=== PATIENT | female | born 1950 | race Caucasian/White ===

== ENCOUNTER 2020-06-29 06:39 | Inpatient (IN) ==
--- NOTE | 2020-05-27 13:51 | PAT Medication Instructions ---
Medication Instructions Date of Service May 27, 2020 Home Medications albuterol sulfate 2 puff INHALATION Q6H PRN atorvastatin 20 mg PO HS calcium carbonate-vitamin D3 [Calcium 600 + D(3)] 1 cap PO BID cholecalciferol (vitamin D3) [Vitamin D3] 50 mcg PO QAM clopidogrel 75 mg PO QAM lansoprazole 30 mg PO QAM lisinopril 10 mg PO BID ASK your prescriber and surgeon clopidogrel 75 mg PO QAM (will need to be off medication x 7 days prior to surgery in order to get spinal anesthesia) DO NOT take the morning of surgery calcium carbonate-vitamin D3 [Calcium 600 + D(3)] 1 cap PO BID cholecalciferol (vitamin D3) [Vitamin D3] 50 mcg PO QAM lisinopril 10 mg PO BID Take morning of surgery With a small sip of water, OTHERWISE NOTHING TO EAT OR DRINK AFTER MIDNIGHT: albuterol sulfate 2 puff INHALATION Q6H PRN (use if needed; please bring with you to hospital day of surgery if possible) lansoprazole 30 mg PO QAM Take evening before surgery albuterol sulfate 2 puff INHALATION Q6H PRN (if needed) atorvastatin 20 mg PO HS calcium carbonate-vitamin D3 [Calcium 600 + D(3)] 1 cap PO BID lisinopril 10 mg PO BID Other Notes If you have any questions please call us at [phone] or [phone] or [phone] or [phone]
--- NOTE | 2020-05-31 09:44 | History & Physical Report ---
Date of Service May 31, 2020 date of surgery: 06/29/20 procedure: Left Total Knee Arthroplasty Assessment & Plan (1) Arthritis of knee, left: Risks and benefits of procedure discussed in detail today, patient would like to proceed with a Left total knee replacement at [facility] as scheduled. will obtain medical clearance from Dr Hernandez prior to surgery as well as obtain PATs at [facility]. Will resume her Plavix post op, f/u 2 weeks post op for routine post-operative care and x-ray, sooner if having any problems. will make arrangements for HHPT at the time of discharge. At this point in time, has failed conservative measures and would like to proceed with surgical intervention. The risks and benefits have been discussed including, but not limited to, risk of infection, nerve injury, stiffness, loss of motion, failure to improve, etc. Reasonable outcomes and options of treatment were discussed. An explanation of appropriate alternatives to the procedure that may be advantageous were discussed and their risks and benefits, as well as the risks and benefits of not proceeding with treatment. I offered to answer any additional inquiries concerning the treatment involved. All the patient's questions were answered. The patient is agreeable, understanding of the treatment plan and alternatives, and wishes to proceed with the treatment plan. History of Present Illness Chief Complaint: left knee pain Primary Care Provider: Jessica Hernandez Gini is a 70 year old female who complains of left knee pain, presents for pre-op evaluation prior to a left total knee replacement by dr Silva at [facility]. she complains of pain, crepitus, decreased range of motion and stiffness in the left knee. she states that the symptoms have been chronic and non-traumatic and she describes them as moderate-severe and dull and aching. The symptoms are aggravated by ascending stairs, daily activities, first steps while awake walking. Prior NSAIDs include ASA and Motrin, however had shortness of breath. she has been treated with previous visco and cortisone injections in the past without much relief. she had a prior knee scope in 1977. Allergies Allergy/AdvReac Type Severity Reaction Status Date / Time aspirin Allergy Unknown SOB, Verified 05/27/20 08:57 "ASTHMA ATTACK"-WITH MOTRIN, ASA PRODUCTS Home Medications Home Medications Medication Instructions Recorded Confirmed Type albuterol sulfate 2 puff INHALATION Q6H PRN 05/27/20 05/27/20 History atorvastatin 20 mg PO HS 05/27/20 05/27/20 History calcium carbonate-vitamin D3 1 cap PO BID 05/27/20 05/27/20 History [Calcium 600 + D(3)] cholecalciferol (vitamin D3) 50 mcg PO QAM 05/27/20 05/27/20 History [Vitamin D3] clopidogrel 75 mg PO QAM 05/27/20 05/27/20 History lansoprazole 30 mg PO QAM 05/27/20 05/27/20 History lisinopril 10 mg PO BID 05/27/20 05/27/20 History Past Med/Surg History Medical History Asthma NO USE OF INHALERS FOR PAST YRS GERD (gastroesophageal reflux disease) Hiatal hernia Hyperlipidemia Hypertension Lower back pain MVP (mitral valve prolapse) NO PREMED WITH DENTAL Osteopenia Stroke 2014 LEFT PONTINE STROKE-PLACED ON PLAVIX-F/U PCP-NO RESIDUAL EFFECTS Surgical History History of colonoscopy History of esophagogastroduodenoscopy (EGD) History of knee surgery X 1 LEFT History of knee surgery X 5 RIGHT -SCOPES AND LIGAMENT REPAIR, MENISCUS REPAIR History of nasal surgery POLYPECTOMY X 6 History of tonsillectomy Family History Father Family history of diabetes mellitus Mother Family history of diabetes mellitus Social History Smoking Status: Never smoker Second Hand Exposure: Yes (FATHER SMOKED); Do You Dip or Chew Tobacco: No; Hx Alcohol Use: Yes Alcohol type: wine Hx Substance Use: No Preferred Language: Mongolian Communication Ability: Effective Plastic Outfitter Required: No Beliefs That Will Affect Care: None Current Living Situation: Alone Other Information That Helps Us Care for You: No Feels Safe at Home: Yes Safety Concerns: Feels Safe At This Time Assistive Devices: Glasses Review of Systems Review of Systems: All systems reviewed & are unremarkable except as noted in HPI & below Constitutional: no fever, no chills and no sweats Respiratory: no cough and no dyspnea Cardiovascular: no chest pain, no dyspnea and no orthopnea Gastrointestinal: no abdominal pain, no nausea and no vomiting Musculoskeletal: as per Subjective / HPI Physical Exam Physical Exam: HT: 5ft 3in WT: 58.97kg BP: 118/84 Pulse: 69 Constitutional: WD/WN, vitals as above no acute distress Respiratory: normal respiratory effort, lungs clear to auscultation no respiratory distress, no labored breathing and does not use accessory muscles Cardiovascular: RRR, no murmur, no edema Gastrointestinal (Abdomen): normal bowel sounds, soft, nontender, no hepatosplenomegaly Musculoskeletal: Knee: + effusion (+1 effusion), + surgical incision (well healed portals), + limited ROM of knee (ROM 0/3/110), + knee ROM with crepitation, + joint line tenderness (medial joint line) and + Jaclyn's sign positive; no deformity, no skin erythema, no ecchymosis, no valgus laxity, no varus laxity, anterior drawer test negative, Es's sign negative and pivot shift test negative Results & Data Results & Data ([facility]) Diagnostic Findings Left Knee X-ray 05/23/20 confirms advanced degenerative changes to the left knee, greatest medial compartments and patellofemoral joint, showing joint space narrowing, osteophyte formation and subchondral sclerosis. no acute bony pathology noted, overall varus alignment.
--- NOTE | 2020-05-31 11:06 | Anesthesiology Consultation ---
Date of Service May 31, 2020 Assessment & Plan (1) Encounter for pre-operative examination: Chart Review Chart Review: Pending: Refer to Additional Notes / Consult section (pending possible ECHO/stress test, surgeon ordered PCP and cardio clearance and preop Covid testing ) and Patient seen in Pre Admission Testing Awaiting 2014 ECHO and stress test (faxed for at [facility] appt) Awaiting surgeon ordered PCP (06/10) and cardio (06/09) clearances Pt states she has spondylosis in L4-5 with old fractures - follows with Vance Huang - chiropractor - in [place]. Will attempt to get records. Per [facility] appt 05/31/20, pt resides in [facility]. Wears mask, uses good hand hygiene and socially distances. Travels to [facility] for medical appts. No known Covid positive contacts or Covid related symptoms. Educated patient to follow up with surgeon's office regarding Covid testing. Educated on importance of self quarantining, social distancing and wearing mask in public both for the patient and household contacts. Teaching & Discussion Pre-Anesthesia Teaching/Discussion Notes: Instructed NPO after midnight before surgery,except medications with 15 cc of water. Medication instructions provided according to the [facility] guidelines. History Surgery Operation Date: 06/29/20 12:30 Proposed Procedures p Left Total Knee Arthroplasty - Daryl Silva DO Height/Weight Height: 5 ft 3 in Weight: 60.7 kg Allergies Allergy/AdvReac Type Severity Reaction Status Date / Time aspirin Allergy Unknown SOB, Verified 05/27/20 08:57 "ASTHMA ATTACK"-WITH MOTRIN, ASA PRODUCTS Medications Home Medications Medication Instructions Recorded Confirmed Last Taken albuterol sulfate 2 puff INHALATION Q6H PRN 05/27/20 05/27/20 Unknown atorvastatin 20 mg PO HS 05/27/20 05/27/20 Unknown calcium carbonate-vitamin D3 1 cap PO BID 05/27/20 05/27/20 Unknown [Calcium 600 + D(3)] cholecalciferol (vitamin D3) 50 mcg PO QAM 05/27/20 05/27/20 Unknown [Vitamin D3] clopidogrel 75 mg PO QAM 05/27/20 05/27/20 Unknown lansoprazole 30 mg PO QAM 05/27/20 05/27/20 Unknown lisinopril 10 mg PO BID 05/27/20 05/27/20 Unknown Past Medical History Medical History Asthma NO USE OF INHALERS FOR PAST YRS GERD (gastroesophageal reflux disease) Well controlled and stable Hiatal hernia Hyperlipidemia Hypertension Lower back pain Chronic MVP (mitral valve prolapse) NO PREMED WITH DENTAL Osteopenia Stroke 2014 LEFT PONTINE STROKE-PLACED ON PLAVIX-F/U PCP-NO RESIDUAL EFFECTS Exercise / Class Metabolic Activity II 4-5 Yardwork/Stairs/Walk up hill (ONE FLIGHT OF STAIRS - NO CHEST PAIN OR SOB ) Past Family History Family History Father Family history of diabetes mellitus Mother Family history of diabetes mellitus Past Surgical History Surgical History History of colonoscopy History of esophagogastroduodenoscopy (EGD) History of knee surgery X 1 LEFT History of knee surgery X 5 RIGHT -SCOPES AND LIGAMENT REPAIR, MENISCUS REPAIR History of nasal surgery POLYPECTOMY X 6 History of tonsillectomy Past Anesthesia History No Hx of Anesthesia Complications and No Family Hx of Anesthesia Complications History of PONV No Hx of Motion Sickness and History of PONV (one episode - after knee surgery ) Social History Smoking Status: Never smoker Do You Dip or Chew Tobacco: No Hx Alcohol Use: Yes Alcohol type: wine alcohol intake frequency: a few times a week Hx Substance Use: No Review of Systems Patient denies chest pain, shortness of breath, dyspnea on exertion, cough, wheezing, palpitations. No hx of seizures, NH, apnea/snoring. No hx of blood clots or blood transfusions Physical Exam Vital Signs VITALS BP 145/61 P 62 TEMP 98.0 SP02 99% RESP 16 Constitutional no acute distress ENMT Mouth: no TMJ clicking Thyromental Distance: > or= 3.5 Finger Breadths (3.5) Mallampati Class: II Denies loose or missing teeth Caps on molars Neck neck extension not limited Respiratory normal respiratory effort; no respiratory distress Auscultation: lungs clear to auscultation bilaterally; no wheezes Cardiovascular Rate/Rhythm: regular rate and regular rhythm Heart Sounds: no murmur Vessels: no carotid bruit Musculoskeletal Spine: no pain with cervical ROM Neurologic moves all extremities Psychiatric Orientation: alert Testing Laboratory Results 05/31/20 11:40 05/31/20 11:40 PT 10.3 Seconds (9.0-12.0) 05/31/20 11:40 INR 1.0 (0.9-1.1) 05/31/20 11:40 APTT 32.0 Seconds (21.0-31.0) H 05/31/20 11:40 Hemoglobin A1c 5.6 % (4.5-5.6) 05/31/20 11:40 Urine Color Yellow 05/31/20 11:40 Urine Appearance Clear (Clear) 05/31/20 11:40 Urine pH 5.5 (4.5-7.5) 05/31/20 11:40 Ur Specific [place] 1.007 (1.000-1.030) 05/31/20 11:40 Urine Protein Negative (Negative) 05/31/20 11:40 Urine Glucose (UA) Negative (Negative) 05/31/20 11:40 Urine Ketones Negative (Negative) 05/31/20 11:40 Urine Nitrite Negative (Negative) 05/31/20 11:40 Ur Leukocyte Esterase Negative (Negative) 05/31/20 11:40 Urine WBC (Auto) 0 /hpf (0-5) 05/31/20 11:40 Urine RBC (Auto) 0-4 /hpf (0-4) 05/31/20 11:40 U Hyaline Cast (Auto) 0 /lpf (0-5) 05/31/20 11:40 U Epithel Cells (Auto) 0-5 /lpf (0-5) 05/31/20 11:40 Urine Bacteria (Auto) Negative (Negative) 05/31/20 11:40 Blood Type A Negative 05/31/20 11:40 Antibody Screen NEGATIVE 05/31/20 11:40 Electrocardiogram Date: 05/31/20 Findings: + SB @ (58) Chest X-Ray Date: 05/31/20 Findings: + NAD
--- NOTE | 2020-05-31 11:57 | XRay Report ---
XR chest Pre-admission PA/Lat CLINICAL HISTORY: Preoperative chest COMPARISON STUDY: No previous studies for comparison. FINDINGS: The cardiac and mediastinal contours are normal. There is no evidence of focal pulmonary co nsolidation. There is no evidence of failure. No pleural effusions are visualized.[There are minimal basilar atelectatic changes. IMPRESSION: No active disease in the chest. ACT 112: Negative or not required by law. Electronically signed by: Jarrett Myers M.D. 05/31/2020 11:56 AM
[2020-05-31 12:34] LABS: Basophils # (auto) 0.05 K/uL (0-0.2); Basophils % (auto) 0.6 %; Eosinophils # (auto) 0.32 K/uL (0-0.5); Eosinophils % (auto) 3.9 %; Hematocrit (blood only) 45.3 % (37-47); Hemoglobin 14.1 g/dL (12.0-16.0); Immature Granulocytes # (auto) 0.02 K/uL (0.00-0.02); Immature Granulocytes % (auto) 0.2 %; Lymphocytes # (auto) 2.56 K/uL (1.2-3.4); Lymphocytes % (auto) 31.4 %; Mean Corpuscular Hemoglobin 29.4 pg (25-34); Mean Corpuscular Hgb Conc 31.1 g/dL (32-36); Mean Corpuscular Volume 94.4 fL (80-100); Mean Platelet Volume 10.4 fL (7.4-10.4); Monocytes # (auto) 0.34 K/uL (0.11-0.59); Monocytes % (auto) 4.2 %; Neutrophils # (auto) 4.85 K/uL (1.4-6.5); Neutrophils % (auto) 59.7 %; Platelet Count 309 K/uL (130-400); RDW Coefficient of Variation 13.6 % (11.5-14.5); White Blood Count 8.14 K/uL (4.8-10.8)
[2020-05-31 12:38] LABS: Appearance Urine Clear (Clear); Bacteria Urine Automated Negative (Negative); Bilirubin Urine Negative (Negative); Blood Urine 1+ (Negative); Cast Urine Automated 0 /lpf (0-5); Color Urine Yellow; Epithelial Cell Urine Auto 0-5 /lpf (0-5); Glucose Urine UA Negative (Negative); Ketones Urine Negative (Negative); Leukocyte Esterase Urine Negative (Negative); Nitrite Urine Negative (Negative); Protein Urine Negative (Negative); RBC Urine Automated 0-4 /hpf (0-4); Specific Gravity Urine 1.007 (1.000-1.030); Urobilinogen Urine Negative (Negative); WBC Urine Automated 0 /hpf (0-5); pH Urine 5.5 (4.5-7.5)
[2020-05-31 12:40] LABS: Albumin Level 3.7 gm/dl (3.4-5.0); BUN Creatinine Ratio 22.3 (10-20); Calcium 9.2 mg/dl (8.5-10.1); Creatinine Clr Calc Pharmacy 52.2 ml/min; Est GFR (African American) 82.8; Est GFR (Non-African American) 71.4
[2020-05-31 12:50] LABS: Partial Thromboplastin Ratio 1.1; Prothrombin Time 10.3 Seconds (9.0-12.0)
[2020-05-31 13:13] LABS: Estimated Average Glucose 114 mg/dl; Hemoglobin A1C 5.6 % (4.5-5.6)
--- NOTE | 2020-05-31 17:31 | Electrocardiogram Report ---
Test Reason : Blood Pressure : / mmHG Vent. Rate : 058 BPM Atrial Rate : 058 BPM P-R Int : 194 ms QRS Dur : 078 ms QT Int : 408 ms P-R-T Axes : 079 078 064 degrees QTc Int : 400 ms Sinus bradycardia Otherwise normal ECG No previous ECGs available Confirmed by Buzz Hayes ([id number]) on 05/31/2020 5:30:44 PM Referred By: Daryl Silva Confirmed By:Eric Hayes
[~2020-06-29 06:39] MED LIST: ACETAMINOPHEN 500 MG TAB PO SCH; BUPIVACAINE 0.5 % 5 MG/1 ML PF 10ML VIAL ONE; CeleBREX 200 MG CAP PO SCH; FAMOTIDINE 20 MG TAB PO SCH; GABAPENTIN 300 MG CAP PO SCH; LR 500ML BOLUS, THEN 15ML/HR IV SCH; METOCLOPRAMIDE HCL 10 MG TABLET PO SCH; ROPIVACAINE 0.5% 5 MG/ML 30 ML VIAL ONE; ROPIVACAINE 0.5% HCL/PF 150 MG, BUPIVACAINE 0.5% MPF 30 ML, EPINEPHrine 30MG/30ML (OR U... INSTIL SCH; TRANEXAMIC ACID 1,000 MG **IV Intra-op IV SCH; TRANEXAMIC ACID 1,000 MG **IV Pre-op IV SCH; ceFAZolin 2000MG 2,000 MG/15 ML SYR IV SCH; dexAMETHasone 4 MG TAB PO SCH
[2020-06-29] MEDS ORDERED: fentaNYL citrate 100 MCG/2 ML VIAL ONE (07:00)
[2020-06-29] MEDS ORDERED: MIDAZOLAM HCL 1 MG/ML 2ML VIAL ONE (07:00)
[2020-06-29] MEDS ORDERED: PROPOFOL IV EMULSION 10 MG/ML 20 ML VIAL IV ONE ×2 (07:00→09:20)
[2020-06-29] MEDS ORDERED: BACITRACIN INJ 50,000 UNIT VIAL ONE (07:10)
[2020-06-29] MEDS ORDERED: ORTHO JOINT ANESTHETIC ONE (07:10)
--- NOTE | 2020-06-29 07:13 | History & Physical Bridge Note ---
Date of Service June 29, 2020 History & Physical Bridge Note I have examined the patient, reviewed the History & Physical and in the interval since the performance of the History & Physical I have noted the following changes of clinical significance: no changes noted
[2020-06-29] MEDS ORDERED: ONDANSETRON INJ 2 MG/ML 2 ML VIAL IV PRN ×3 (08:02→11:46)
[2020-06-29] MEDS ORDERED: ATROPINE SULFATE 0.1 MG/ML 10ML SYR IV PRN (08:02)
[2020-06-29] MEDS ORDERED: ePHEDrine sulfate 50 MG/ML AMP IV PRN (08:02)
[2020-06-29] MEDS ORDERED: HYDROmorphone INJ 1 MG/ML SYRINGE IV PRN (08:02)
[2020-06-29] MEDS ORDERED: ePHEDrine sulfate 50 MG/ML AMP ONE (08:43)
--- NOTE | 2020-06-29 09:35 | Operative Report ---
Post Operative Report Pre & Post Diagnosis Operation Date: 06/29/20 08:20 Pre-Op Diagnosis: Unilateral Primary Osteoarthritis, Left Knee Post-Op Diagnosis: Unilateral Primary Osteoarthritis, Left Knee I identified the patient and participated in the time-out.: Yes Procedure Operation Date: 06/29/20 08:20 Actual Procedures p Left Total Knee Arthroplasty(Left) utilizing Velázquez & Nephew journey 2 patient matched total knee arthroplasty size 4 femur 3 tibia 10 polyethylene 29 oval patella- Daryl Silva DO Surgeon Daryl Silva DO Processor Helper Jason ANNA Estimated Blood Loss 5 Findings Consistent with Post-Op Diagnosis Patient presents with severe end-stage DJD varus alignment 7 degree flexion contracture [id number] eburnated bone subchondral cystic change as well as marginal osteophytes moderate to large effusion Specimens Bone and cartilage Drains Medium bore Hemovac Anesthesia Type MAC Spinal Regional Complications none Disposition Accompanied Patient To Recovery: No Disposition: Recovery Room Indications Patient presents with severe end-stage tricompartmental degenerative joint disease no response to conservative management clinic physical therapy anti- inflammatories relative rest activity modification corticosteroid injections viscosupplementation the above intraoperative findings were noted. Description of Procedure After proper prepping and draping of the left lower extremity anterior midline incision was made over the region of the extensor extensor mechanism after meticulous hemostasis was obtained and maintained in subcutaneous tissues a medial parapatellar incision was made The patella was subluxed lateralward the medial lateral gutter were cleaned from any hypertrophic synovitis and scar tissue of the distal femoral block was placed and the distal femoral osteotomy cut was made subsequently the chamfers anterior and posterior osteotomy cuts were made utilizing the 4-in-1 block the tibia was subsequently subluxed anteriorward medial and ateral meniscal remnants were excised in their entirety remnants of the anterior and posterior cruciate ligaments were excised in their entirety excellent exposure of the proximal tibia was obtained the tibial osteotomy guide was placed on the proximal tibial osteotomy cut was made once again the knee was irrigated with copious amounts of sterile saline solution the patella was subsequently everted lateralward thickened scar tissue around the patella was removed the patella was subsequently cut utilizing a freehand technique and was drilled prepared for final preparation and placement of patella socially flexion-extension gaps were checked and the equal and symmetric trials were placed to the appropriate femoral and tibial trials with poly-spacer being placed for equal flexion and extension gaps and full range of motion including extension to 0 and flexion to 140 the trial components after having been taken to recovery range of motion was subsequently removed meticulous hemostasis was obtained and maintained subsequently a knee block injection of joint cocktail including ropivacaine 0.5% 150 mg. Bupivacaine 0.5% epinephrine 1-200,030 mL's toradol 30 mg dexamethasone 4 mg ketamine 10 mg clonidine 100 micrograms normal saline solution 30 mg was infiltrated into the soft tissues of the posterior knee medial lateral gutters and periosteal synovium special attention was paid to protect neurovascular structures at all times subsequently trial components having been removed the knee was irrigated with sterile saline solution. debris was removed the proximal tibia was subsequently prepared and was made ready for the placement of the tibial component tibial component was also cemented and tamped into position the femoral component was subsequently placed and cemented in the position the patellar component was subsequently cemented in position because hemostasis once again obtained and maintained wound having been thoroughly irrigated with debridement and debridement lavage was performed as well as a medial parapatellar incision closed with #1 Vicryl in interrupted fashion subcutaneous was closed with #2 Vicryl skin was closed with skin clips. PA-C was necessary for prepping and drapping as well as wound closure of deep fascia Sub cutaneous tissue and skin and was necessary for the case. A sterile compressive dressing was placed patient was taken to recovery in stable condition of report dictated by Ricardo I attest to the content of the Intraoperative Record and any orders documented therein. Any exceptions are noted below. I attest to the content of the Intraoperative Record and any orders documented therein. Any exceptions are noted below.
[2020-06-29] MEDS ORDERED: ALUMINUM/MAGNESIUM SUSP 30 ML UDC PO PRN ×2 (10:46→11:46)
[2020-06-29] MEDS ORDERED: NALOXONE HCL 0.4 MG/1 ML VIAL/CARP IV PRN ×2 (10:46→11:46)
[2020-06-29] MEDS ORDERED: MAGNESIUM HYDROXIDE SUSP 30 ML UDC PO PRN ×2 (10:46→11:46)
[2020-06-29] MEDS ORDERED: METOCLOPRAMIDE HCL INJ 5 MG/ML 2 ML VIAL IV PRN ×2 (10:46→11:46)
[2020-06-29] MEDS ORDERED: diphenhydrAMINE Capsule 25 MG CAP PO PRN ×2 (10:46→11:46)
[2020-06-29] MEDS ORDERED: bisacodyL 10 MG SUPP PR PRN ×2 (10:46→11:46)
--- NOTE | 2020-06-29 11:00 | Anesthesiology Progress Note ---
Date of Service June 29, 2020 Anesthesia Post Procedure Vital Signs Vital Signs: Temp Pulse Pulse Resp BP Pulse Ox 06/29/20 10:50 36.5 C 84 16 120/63 97 06/29/20 10:40 86 15 119/66 99 06/29/20 10:30 83 16 115/59 L 99 06/29/20 10:20 83 14 113/54 L 100 06/29/20 10:14 36.3 C L 86 16 101/46 L 100 06/29/20 06:57 36.9 C 69 20 164/68 H 99 Transfer of Care Handoff Completed per policy Notes Mental Status: alert / awake / arousable Patient Amnestic to Procedure: Yes Nausea / Vomiting: adequately controlled Pain: adequately controlled Airway Patency, RR, SpO2: stable & adequate BP & HR: stable & adequate Hydration State: stable & adequate Neuraxial Anesthesia: was administered and sensory block is resolving Anesthetic Complications: no major complications apparent
[2020-06-29] MEDS ORDERED: ALBUTEROL HFA 8 GM INHALER INH PRN (11:46)
[2020-06-29] MEDS ORDERED: SODIUM CHLORIDE 0.9% 1000ML 1,000 ML IV SCH (11:46)
[2020-06-29] MEDS ORDERED: ceFAZolin 1000MG 1,000 MG/7.5 ML SYR IV SCH (11:46)
[2020-06-29] MEDS ORDERED: oxyCODONE HCL IR 5 MG TAB (IMMEDIATE RELEASE) PO PRN (11:46)
[2020-06-29] MEDS: SODIUM CHLORIDE 0.9% 1000ML 1,000 ML IV SCH ×2 (12:05→21:35)
--- NOTE | 2020-06-29 12:25 | XRay Report ---
TWO VIEWS LEFT KNEE CLINICAL HISTORY: Postoperative examination. FINDINGS: AP and crosstable lateral portable views of the left knee are obtained. A left knee arthrop lasty is in near anatomic alignment. There has been undersurface remodeling of the patella. No acute fracture is seen. There are expected postoperative changes around the knee including a surgical drai n, soft tissue edema, and subcutaneous gas. IMPRESSION: Expected postoperative changes status post left knee arthroplasty. No acute fracture is s een. ACT 112: Negative or not required by law. Electronically signed by: Graeme Cole M.D. 06/29/2020 12:23 PM
[2020-06-29] MEDS: ACETAMINOPHEN 500 MG TAB PO SCH ×2 (13:01→21:32)
[2020-06-29] MEDS ORDERED: ACETAMINOPHEN 500 MG TAB PO SCH (14:00)
[2020-06-29] MEDS: ceFAZolin 1000MG 1,000 MG/7.5 ML SYR IV SCH (15:32)
[2020-06-29] MEDS: oxyCODONE HCL IR 5 MG TAB (IMMEDIATE RELEASE) PO PRN ×3 (15:32→21:23)
[2020-06-29] MEDS ORDERED: DOCUSATE SODIUM 100 MG CAP PO SCH (21:00)
[2020-06-29] MEDS ORDERED: SENNA 8.6 MG TAB PO SCH ×2 (21:00)
[2020-06-29] MEDS ORDERED: ATORVASTATIN 20 MG TAB PO SCH (21:00)
[2020-06-29] MEDS: CALCIUM 600MG + VIT D 400 IU TAB PO SCH (21:29)
[2020-06-29] MEDS: DOCUSATE SODIUM 100 MG CAP PO SCH (21:29)
[2020-06-29] MEDS: lisinopril 10 MG TAB PO SCH (21:31)
[2020-06-30] MEDS: ceFAZolin 1000MG 1,000 MG/7.5 ML SYR IV SCH (01:32)
[2020-06-30] MEDS: oxyCODONE HCL IR 5 MG TAB (IMMEDIATE RELEASE) PO PRN ×2 (01:37→08:21)
[2020-06-30] MEDS: ACETAMINOPHEN 500 MG TAB PO SCH (06:11)
[2020-06-30] MEDS ORDERED: COUGH DROP (SUGAR FREE) LOZ 24 LOZ/1 BOX BUCCAL PRN (06:18)
[2020-06-30 07:10] LABS: Hematocrit (blood only) 33.9 % (37-47); Hemoglobin 11.1 g/dL (12.0-16.0); Mean Corpuscular Hemoglobin 30.7 pg (25-34); Mean Corpuscular Hgb Conc 32.7 g/dL (32-36); Mean Corpuscular Volume 93.6 fL (80-100); Mean Platelet Volume 10.3 fL (7.4-10.4); Platelet Count 244 K/uL (130-400); RDW Coefficient of Variation 13.8 % (11.5-14.5); RDW Standard Deviation 47.8 fL (36.4-46.3); Red Blood Count 3.62 M/uL (4.2-5.4); White Blood Count 16.49 K/uL (4.8-10.8)
[2020-06-30 07:44] LABS: BUN Creatinine Ratio 20.8 (10-20); Calcium 8.7 mg/dl (8.5-10.1); Creatinine Clr Calc Pharmacy 48.1 ml/min; Est GFR (African American) 75.1; Est GFR (Non-African American) 64.8; Potassium 4.2 mmol/L (3.5-5.1)
--- NOTE | 2020-06-30 07:56 | Orthopedic Progress Note ---
Date of Service June 30, 2020 Assessment & Plan (1) History of total left knee replacement: POD #1 s/p Left TKA pt/ot dvt proph with SHELBIE/SCD/ASA plan for d/c home with HHPT after PT today Admission and Anticipated Discharge Date Admission Date: June 29, 2020 Subjective POD #1 s/p Left TKA Review of Systems Constitutional: no fever, no chills and no sweats Respiratory: no cough and no dyspnea Cardiovascular: no chest pain and no dyspnea Gastrointestinal: no abdominal pain, no nausea and no vomiting Physical Exam Physical Exam: Vital Signs Temp 36.6 C 06/30/20 07:33 Pulse 59 L 06/30/20 07:33 Resp 18 06/30/20 07:33 BP 125/65 06/30/20 07:33 Pulse Ox 100 06/30/20 07:33 Intake & Output 06/29/20 06/30/20 06/30/20 18:59 06:59 18:59 Intake Total 1400 / 3350 1950 / 3350 Output Total 525 / 1325 800 / 1325 100 / 100 Balance 875 / 5 1150 / 2024 -100 / -100 Weight 60.328 kg Intake: IV 700 / 2650 1950 / 2650 Lr 1,000 ml @ 15 mls/hr IV . 500 / 500 Q24H [facility] Rx#:[id number] Nss 1000ML 1,0 00 ml @ 100 mls/ 1950 / 1950 hr IV .Q10H SC H Rx#:[id number] TRANEXAMIC ACI D / 0.7% NACL 1, 200 / 200 000 mg In 100 ml @ 600 mls/hr IV TODAY@0600 [facility] Rx#:[id number] IV Perioperative 400 / 400 Oral 300 / 300 Output: Urine 500 / 1150 650 / 1150 Estimated Blood Loss 5 / 5 Drain Output 20 / 170 150 / 170 100 / 100 Left Knee Hemo vac 20 / 170 150 / 170 100 / 100 Other: # Unmeasured Voi ds 1 1 Constitutional: WD/WN, vitals as above no acute distress Musculoskeletal: Left Leg: NVDI, calf SNT, negative philly sign. DP palpable, able to wiggle toes/ankle movement without difficulty. dressing clean dry and intact. Results & Data ([facility]) Vital Signs (Past 12 Hours) Vital Signs Temp Pulse Resp BP Pulse Ox 06/30/20 07:33 36.6 C 59 L 18 125/65 100 06/30/20 04:09 36.6 C 69 18 124/69 98 06/29/20 23:25 36.5 C 64 16 110/68 98 Laboratory Results Laboratory Results WBC 16.49 K/uL (4.8-10.8) H 06/30/20 06:21 RBC 3.62 M/uL (4.2-5.4) L 06/30/20 06:21 Hgb 11.1 g/dL (12.0-16.0) L 06/30/20 06:21 Hct 33.9 % (37-47) L 06/30/20 06:21 MCV 93.6 fL (80-100) 06/30/20 06:21 MCH 30.7 pg (25-34) 06/30/20 06:21 MCHC 32.7 g/dL (32-36) 06/30/20 06:21 RDW Std Deviation 47.8 fL (36.4-46.3) H 06/30/20 06:21 RDW Coeff of Ruth Ann 13.8 % (11.5-14.5) 06/30/20 06:21 Plt Count 244 K/uL (130-400) 06/30/20 06:21 MPV 10.3 fL (7.4-10.4) 06/30/20 06:21 Immature Gran % (Auto) 0.2 % 05/31/20 11:40 Neut % (Auto) 59.7 % 05/31/20 11:40 Lymph % (Auto) 31.4 % 05/31/20 11:40 Lynn % (Auto) 4.2 % 05/31/20 11:40 Eos % (Auto) 3.9 % 05/31/20 11:40 Baso % (Auto) 0.6 % 05/31/20 11:40 Neut # (Auto) 4.85 K/uL (1.4-6.5) 05/31/20 11:40 Lymph # (Auto) 2.56 K/uL (1.2-3.4) 05/31/20 11:40 Lynn # (Auto) 0.34 K/uL (0.11-0.59) 05/31/20 11:40 Eos # (Auto) 0.32 K/uL (0-0.5) 05/31/20 11:40 Baso # (Auto) 0.05 K/uL (0-0.2) 05/31/20 11:40 Immature Gran # (Auto) 0.02 K/uL (0.00-0.02) 05/31/20 11:40 PT 10.3 Seconds (9.0-12.0) 05/31/20 11:40 INR 1.0 (0.9-1.1) 05/31/20 11:40 APTT 32.0 Seconds (21.0-31.0) H 05/31/20 11:40 PTT Ratio 1.1 05/31/20 11:40 Sodium 142 mmol/L (136-145) 06/30/20 06:21 Potassium 4.2 mmol/L (3.5-5.1) 06/30/20 06:21 Chloride 111 mmol/L (98-107) H 06/30/20 06:21 Carbon Dioxide 26 mmol/L (21-32) 06/30/20 06:21 Anion Gap 5.0 (3-11) 06/30/20 06:21 BUN 19 mg/dl (7-18) H 06/30/20 06:21 Creatinine 0.90 mg/dl (0.6-1.2) 06/30/20 06:21 Est Cr Clr Drug Dosing 48.1 ml/min 06/30/20 06:21 Est GFR ( Amer) 75.1 06/30/20 06:21 Est GFR (Non-Af Amer) 64.8 06/30/20 06:21 BUN/Creatinine Ratio 20.8 (10-20) H 06/30/20 06:21 Glucose 109 mg/dl (70-99) H 06/30/20 06:21 Estimat Average Glucose 114 mg/dl 05/31/20 11:40 Hemoglobin A1c 5.6 % (4.5-5.6) 05/31/20 11:40 Calcium 8.7 mg/dl (8.5-10.1) 06/30/20 06:21 Albumin 3.7 gm/dl (3.4-5.0) 05/31/20 11:40 Urine Color Yellow 05/31/20 11:40 Urine Appearance Clear (Clear) 05/31/20 11:40 Urine pH 5.5 (4.5-7.5) 05/31/20 11:40 Ur Specific [place] 1.007 (1.000-1.030) 05/31/20 11:40 Urine Protein Negative (Negative) 05/31/20 11:40 Urine Glucose (UA) Negative (Negative) 05/31/20 11:40 Urine Ketones Negative (Negative) 05/31/20 11:40 Urine Blood 1+ (Negative) H 05/31/20 11:40 Urine Nitrite Negative (Negative) 05/31/20 11:40 Urine Bilirubin Negative (Negative) 05/31/20 11:40 Urine Urobilinogen Negative (Negative) 05/31/20 11:40 Ur Leukocyte Esterase Negative (Negative) 05/31/20 11:40 Urine WBC (Auto) 0 /hpf (0-5) 05/31/20 11:40 Urine RBC (Auto) 0-4 /hpf (0-4) 05/31/20 11:40 U Hyaline Cast (Auto) 0 /lpf (0-5) 05/31/20 11:40 U Epithel Cells (Auto) 0-5 /lpf (0-5) 05/31/20 11:40 Urine Bacteria (Auto) Negative (Negative) 05/31/20 11:40 Blood Type A Negative 05/31/20 11:40 Antibody Screen NEGATIVE 05/31/20 11:40 Diagnostic Findings TWO VIEWS LEFT KNEE CLINICAL HISTORY: Postoperative examination. FINDINGS: AP and crosstable lateral portable views of the left knee are obtained. A left knee arthroplasty is in near anatomic alignment. There has been undersurface remodeling of the patella. No acute fracture is seen. There are expected postoperative changes around the knee including a surgical drain, soft tissue edema, and subcutaneous gas. IMPRESSION: Expected postoperative changes status post left knee arthroplasty. No acute fracture is seen.
[2020-06-30] MEDS ORDERED: dexAMETHasone 4 MG TAB PO SCH ×2 (08:00)
[2020-06-30] MEDS: lisinopril 10 MG TAB PO SCH (08:22)
[2020-06-30] MEDS: CALCIUM 600MG + VIT D 400 IU TAB PO SCH (08:24)
[2020-06-30] MEDS: DOCUSATE SODIUM 100 MG CAP PO SCH (08:27)
[2020-06-30] MEDS ORDERED: CLOPIDOGREL BISULFATE 75 MG TAB PO SCH (09:00)
[2020-06-30] MEDS ORDERED: MULTIVITAMIN TAB PO SCH ×2 (09:00)
[2020-06-30] MEDS ORDERED: LANSOPRAZOLE 30 MG SOLTAB PO SCH (09:00)
[2020-06-30] MEDS ORDERED: CHOLECALCIFEROL 1,000 UNITS 25 MCG TAB PO SCH (09:00)
--- NOTE | 2020-06-30 09:06 | Anesthesiology Progress Note ---
Date of Service June 30, 2020 Anesthesia Post Procedure Vital Signs Vital Signs: Temp Pulse Pulse Resp BP BP Pulse Ox 06/30/20 07:33 36.6 C 59 L 18 125/65 100 06/30/20 04:09 36.6 C 69 18 124/69 98 06/29/20 23:25 36.5 C 64 16 110/68 98 06/29/20 19:15 36.7 C 65 16 110/68 96 06/29/20 15:52 36.8 C 92 H 17 107/59 L 96 06/29/20 13:32 36.7 C 88 18 119/81 97 06/29/20 12:33 36.6 C 88 18 108/58 L 98 06/29/20 12:00 82 18 113/70 98 06/29/20 11:30 36.5 C 83 18 107/56 L 97 06/29/20 11:15 85 16 108/51 L 97 06/29/20 11:00 83 17 113/53 L 97 06/29/20 10:50 36.5 C 84 16 120/63 97 06/29/20 10:40 86 15 119/66 99 06/29/20 10:30 83 16 115/59 L 99 06/29/20 10:20 83 14 113/54 L 100 06/29/20 10:14 36.3 C L 86 16 101/46 L 100 Pain Intensity Left Knee: Pain Intensity: 6 Notes Mental Status: alert / awake / arousable and participated in evaluation Nausea / Vomiting: adequately controlled Pain: adequately controlled Airway Patency, RR, SpO2: stable & adequate BP & HR: stable & adequate Hydration State: stable & adequate Neuraxial Anesthesia: was administered and sensory block resolved Anesthetic Complications: Pt Satisfied with anesthetic care
--- NOTE | 2020-07-02 13:34 | Discharge Summary (DS) ---
CHIEF COMPLAINT: Left knee pain. Please see complete history and physical examination. HOSPITAL COURSE: The patient underwent left total knee arthroplasty without complication. She tolerated the procedure well and was discharged to recovery room in stable condition. Her postoperative course was relatively uneventful. Her postoperative pain was reasonably well controlled with a combination of spinal anesthesia, adductor canal block, intraoperative joint injection, IV and oral pain medications. She resumed her Plavix use postoperatively for DVT prophylaxis. She also utilized SHELBIE stockings and SCDs for additional prophylaxis. Her H and H was stable and did not require transfusion. She tolerated postoperative physical therapy reasonably well where she ambulated approximately 400 feet and demonstrated the ability to go up and down stairs without significant difficulty. She was discharged home on postoperative day 1. She will continue her Plavix for DVT prophylaxis. She will have home health including home nursing and home physical therapy. She will follow up with Dr. Silva in approximately 10-14 days postoperatively.
== END 2020-06-30 12:20 | disposition home health service (06) | DRG 470 ==
LOC: ASU 06:39 → 3N 10:47

== ENCOUNTER 2022-10-09 06:24 | Observation (INO) ==
--- NOTE | 2022-09-13 12:40 | History & Physical Report ---
Date of Service September 13, 2022 date of surgery: 10/09/22 Procedure: Right Total Knee Arthroplasty with Removal Anterior Cruciate Ligament Screws Surgeon: Daryl Silva Assessment & Plan (1) Arthritis of right knee: Plan: Presents for evaluation of chronic right knee pain, denies any new injuries or trauma. Her x-rays show advanced degenerative changes to the right knee with prior history of ACL reconstruction with 2 metallic screws noted. We discussed treatment options, this point time she like to proceed with a right total knee replacement, plan will be [employer] nonblock right total knee replacement with removal of ACL screws. We will obtain medical clearance for possible outpatient joint program. Risk and benefits of procedure discussed in detail and had has no other questions or concerns, she is unable to take aspirin, therefore will likely place on Xarelto for 1 month postop for DVT prophylaxis The risks and benefits have been discussed including, but not limited to, risk of infection, nerve injury, stiffness, loss of motion, failure to improve, etc. Reasonable outcomes and options of treatment were discussed. An explanation of appropriate alternatives to the procedure that may be advantageous were discussed and their risks and benefits, as well as the risks and benefits of not proceeding with treatment. I offered to answer any additional inquiries concerning the treatment involved. All the patient's questions were answered. The patient is agreeable, understanding of the treatment plan and alternatives, and wishes to proceed with the treatment plan. History of Present Illness Chief Complaint: Right knee pain Primary Care Provider: Jessica Hernandez Gini is a pleasant 72-year-old female who presents for preop evaluation prior to right total knee replacement. She states that she has been having pain in his knee for many years now which is gradually worsened and is now affecting her daily activities including walking standing using stairs. She is prior history of ACL reconstruction approximately 25 years ago. She is tried and failed previous corticosteroid injection as well as viscosupplementation. She rates her current pain as a 7 out of 10 is also tried oral anti-inflammatories and Tylenol without relief Allergies Allergy/AdvReac Type Severity Reaction Status Date / Time aspirin Allergy Unknown SOB, Verified 06/29/20 06:52 "ASTHMA ATTACK"-WITH MOTRIN, ASA PRODUCTS Home Medications Medication Instructions Recorded Confirmed Type albuterol sulfate 90 mcg/actuation 2 puff inhalation Q6H PRN Wheezing 05/27/20 06/29/20 History aerosol inhaler atorvastatin 20 mg tablet 20 mg PO HS 05/27/20 06/29/20 History calcium carbonate 600 mg-vitamin 1 cap PO BID 05/27/20 06/29/20 History D3 5 mcg (200 unit) capsule (Calcium 600 + D(3)) cholecalciferol (vitamin D3) 50 50 mcg PO QAM 05/27/20 06/29/20 History mcg (2,000 unit) capsule (Vitamin D3) clopidogrel 75 mg tablet 75 mg PO QAM 05/27/20 06/29/20 History lansoprazole 30 mg delayed 30 mg PO QAM 05/27/20 06/29/20 History release,disintegrating tablet lisinopril 10 mg tablet 10 mg PO BID 05/27/20 06/29/20 History oxycodone 5 mg tablet 5 - 10 mg PO Q6H PRN pain #30 tabs 06/30/20 Rx Past Med/Surg History Medical History Asthma NO USE OF INHALERS FOR PAST YRS GERD (gastroesophageal reflux disease) Well controlled and stable Hiatal hernia Hyperlipidemia Hypertension Lower back pain Chronic MVP (mitral valve prolapse) NO PREMED WITH DENTAL Osteopenia Stroke 2014 LEFT PONTINE STROKE-PLACED ON PLAVIX-F/U PCP-NO RESIDUAL EFFECTS Surgical History History of colonoscopy History of esophagogastroduodenoscopy (EGD) History of knee surgery X 1 LEFT History of knee surgery X 5 RIGHT -SCOPES AND LIGAMENT REPAIR, MENISCUS REPAIR History of nasal surgery POLYPECTOMY X 6 History of tonsillectomy Family History Father Family history of diabetes mellitus Mother Family history of diabetes mellitus Social History Smoking Status: Never smoker Second Hand Exposure: Yes (FATHER SMOKED); Hx Alcohol Use: Yes Alcohol type: wine Hx Substance Use: No Preferred Language: Algerian Communication Ability: Effective [employer] Required: No Beliefs That Will Affect Care: None marital status: Single Current Living Situation: Alone Feels Safe at Home: Yes Assistive Devices: Glasses and Walker Review of Systems Review of Systems: All systems reviewed & are unremarkable except as noted in HPI & below Constitutional: no fever, no chills and no sweats Respiratory: no cough and no dyspnea Cardiovascular: no chest pain, no dyspnea and no orthopnea Gastrointestinal: no abdominal pain, no nausea and no vomiting Musculoskeletal: as per Subjective / HPI Physical Exam Constitutional: WD/WN, vitals as above no acute distress Respiratory: normal respiratory effort, lungs clear to auscultation no respiratory distress, no labored breathing and does not use accessory muscles Cardiovascular: RRR, no murmur, no edema Gastrointestinal (Abdomen): normal bowel sounds, soft, nontender, no hepatosplenomegaly Musculoskeletal: Knee: + knee abnormal to inspection (RIGHT KNEE), + effusion (+1 effusion), + surgical incision (well healed portals), + limited ROM of knee (ROM 0/3/110), + knee ROM with crepitation, + joint line tenderness (medial joint line) and + Jaclyn's sign positive; no deformity, no skin erythema, no ecchymosis, no valgus laxity, no varus laxity, anterior drawer test negative, Es's sign negative and pivot shift test negative Results & Data Results & Data ([facility]) Diagnostic Findings 4 views of the right knee show advanced generative changes tricompartmentally to the right knee, with prior history of ACL reconstruction with 2 metallic screws noted one of the distal femur one of the proximal tibia. She has joint space narrowing osteophyte formation subchondral sclerosis, calcified loose body posterior joint no acute findings noted
--- NOTE | 2022-09-17 09:44 | PAT Medication Instructions ---
Medication Instructions Date of Service September 17, 2022 Home Medications albuterol sulfate 90 mcg/actuation aerosol inhaler 2 puff inhalation Q6H PRN atorvastatin 20 mg tablet 40 mg PO HS calcium carbonate 600 mg-vitamin D3 5 mcg (200 unit) capsule (Calcium 600 + D(3)) 1 cap PO BID cholecalciferol (vitamin D3) 50 mcg (2,000 unit) capsule (Vitamin D3) 50 mcg PO QAM clopidogrel 75 mg tablet 75 mg PO QAM lansoprazole 30 mg delayed release,disintegrating tablet 30 mg PO QAM lisinopril 10 mg tablet 20 mg PO QAM alendronate 70 mg tablet 70 mg PO WK coenzyme Q10 100 mg capsule (CoQ-10) 200 mg PO QPM gabapentin 300 mg capsule 300 mg PO BID lisinopril 10 mg tablet 10 mg PO QPM metaxalone 800 mg tablet 800 mg PO BID omega-3 fatty acids 500 mg PO QPM psyllium seed (sugar) oral powder 1 tsp PO QAM turmeric 400 mg capsule 400 mg PO QPM ASK your prescriber and surgeon clopidogrel 75 mg tablet 75 mg PO QAM (check with prescriber if acceptable to stop x 7 days to receive neuraxial anesthesia) STOP taking 2 weeks before surgery (or as soon as possible if surgery is within 2 weeks) coenzyme Q10 100 mg capsule (CoQ-10) 200 mg PO QPM omega-3 fatty acids 500 mg PO QPM turmeric 400 mg capsule 400 mg PO QPM DO NOT take the morning of surgery calcium carbonate 600 mg-vitamin D3 5 mcg (200 unit) capsule (Calcium 600 + D(3)) 1 cap PO BID cholecalciferol (vitamin D3) 50 mcg (2,000 unit) capsule (Vitamin D3) 50 mcg PO QAM lansoprazole 30 mg delayed release,disintegrating tablet 30 mg PO QAM lisinopril 10 mg tablet 20 mg PO QAM alendronate 70 mg tablet 70 mg PO WK metaxalone 800 mg tablet 800 mg PO BID psyllium seed (sugar) oral powder 1 tsp PO QAM Take morning of surgery With a small sip of water, OTHERWISE NOTHING TO EAT OR DRINK AFTER MIDNIGHT: albuterol sulfate 90 mcg/actuation aerosol inhaler 2 puff inhalation Q6H PRN(use if needed; please bring with you to hospital day of surgery if possible) gabapentin 300 mg capsule 300 mg PO BID Take evening before surgery albuterol sulfate 90 mcg/actuation aerosol inhaler 2 puff inhalation Q6H PRN(if needed) atorvastatin 20 mg tablet 40 mg PO HS calcium carbonate 600 mg-vitamin D3 5 mcg (200 unit) capsule (Calcium 600 + D(3)) 1 cap PO BID gabapentin 300 mg capsule 300 mg PO BID lisinopril 10 mg tablet 10 mg PO QPM metaxalone 800 mg tablet 800 mg PO BID Other Notes If you have any questions please call us at [phone] or [phone] or [phone] or [phone]
--- NOTE | 2022-09-18 13:35 | Anesthesiology Consultation ---
Date of Service September 18, 2022 Assessment & Plan (1) Encounter for pre-operative examination: - Case discussed in detail with Dr. Colbert including fall who advised pt is acceptable to proceed from anesthesia standpoint. - anesthesia concerns: pt states was initially concerned that back pain ongoing x yrs was potentially caused by a spinal block in the past, expresses she then spoke with several of her providers who advised this was less likely. She states is agreeable to neuraxial anesthesia pending final discussion with anesthesiologist kristin MOSS. Pt reports h/o L4 and L5 fractures yrs ago. - needle phobia: occasional vasovagal syncope during lab draws/IV placement. - Outpatient joint assessment: Patient is currently scheduled for inpatient pathway. If re-evaluated pending system levels during current pandemic/surgeon requests outpatient pathway, patient is NOT acceptable candidate for outpatient joint program from anesthesia standpoint. Chart Review Chart Review: Acceptable Risk for Surgery and Patient seen in Pre Admission Testing Teaching & Discussion Pre-Anesthesia Teaching/Discussion Notes: Instructed NPO after midnight before surgery, except medications with 15 cc of water. Medication instructions provided according to the PAT guidelines. History Surgery Operation Date: 10/09/22 11:25 Proposed Procedures p Right Total Knee Arthroplasty with Removal Anterior Cruciate Ligament Screws - Daryl Silva, Height/Weight Height: 5 ft 2 in Weight: 59.6 kg Allergies Allergy/AdvReac Type Severity Reaction Status Date / Time aspirin Allergy Unknown SOB, Verified 09/14/22 07:41 "ASTHMA ATTACK"-WITH MOTRIN, ASA PRODUCTS HCTZ Allergy Severe Nausea Uncoded 09/14/22 08:05 Medications Home Medications Medication Instructions Recorded Confirmed Last Taken albuterol sulfate 90 mcg/actuation 2 puff inhalation Q6H PRN Wheezing 05/27/20 09/14/22 06/29/20 05:00 aerosol inhaler atorvastatin 20 mg tablet 40 mg PO HS 05/27/20 09/14/22 06/28/20 20:00 calcium carbonate 600 mg-vitamin 1 cap PO BID 05/27/20 09/14/22 06/28/20 20:00 D3 5 mcg (200 unit) capsule (Calcium 600 + D(3)) cholecalciferol (vitamin D3) 50 50 mcg PO QAM 05/27/20 09/14/22 06/28/20 20:00 mcg (2,000 unit) capsule (Vitamin D3) clopidogrel 75 mg tablet 75 mg PO QAM 05/27/20 09/14/22 06/22/20 08:00 lansoprazole 30 mg delayed 30 mg PO QAM 05/27/20 09/14/22 06/29/20 05:00 release,disintegrating tablet lisinopril 10 mg tablet 20 mg PO QAM 05/27/20 09/14/22 06/28/20 20:00 alendronate 70 mg tablet 70 mg PO WK 09/14/22 09/14/22 Unknown coenzyme Q10 100 mg capsule 200 mg PO QPM 09/14/22 09/14/22 Unknown (CoQ-10) gabapentin 300 mg capsule 300 mg PO BID 09/14/22 09/14/22 Unknown lisinopril 10 mg tablet 10 mg PO QPM 09/14/22 09/14/22 Unknown metaxalone 800 mg tablet 800 mg PO BID 09/14/22 09/14/22 Unknown omega-3 fatty acids 500 mg PO QPM 09/14/22 09/14/22 Unknown psyllium seed (sugar) oral powder 1 tsp PO QAM 09/14/22 09/14/22 Unknown turmeric 400 mg capsule 400 mg PO QPM 09/14/22 09/14/22 Unknown Additional Notes: Pt was advised to take lansoprazole am DOS, this was corrected on provided medication instructions. 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 Exercise / Class Metabolic Activity II 4-5 Yardwork/Stairs/Walk up hill (denies chest discomfort or shortness of breath with 1 FOS) Past Family History Family History Father Family history of diabetes mellitus Mother Family history of diabetes mellitus Past Surgical History Surgical History (Updated 09/18/22 @ 13:32 by Rabia Ramon PA-C) History of colonoscopy History of esophagogastroduodenoscopy (EGD) History of knee surgery left knee replacement 06/29/20 SAB L3-L4 + PNB. History of knee surgery X 5 RIGHT -SCOPES AND LIGAMENT REPAIR, MENISCUS REPAIR History of nasal surgery POLYPECTOMY X 6 History of tonsillectomy Past Anesthesia History No Hx of Anesthesia Complications and No Family Hx of Anesthesia Complications History of PONV No Hx of PONV and No Hx of Motion Sickness Social History Smoking Status: Never smoker Do You Dip or Chew Tobacco: No Hx Alcohol Use: Yes Alcohol type: wine alcohol intake frequency: holidays/special occasions only Hx Substance Use: No substance use type: does not use Review of Systems Fall 1 week ago, hit head: states she called her PCP and was advised to monitor for development of any symptoms which did not occur, states throughout time from fall to now has felt completely at her usual baseline. Patient denies chest pain, shortness of breath, dyspnea on exertion, snoring, witnessed apneas, fever, chills, cough, wheezing, or palpitations. Physical Exam Vital Signs Vitals BP 160/78 P 65 TEMP 98.2 SP02 100% on RA RESP 17 Physical Resting comfortably in chair in NAD, alert and oriented, responding appropriately Full cervical extension range of motion without pain TMD 3.5 finger breadths Mallampati Score 3 Dentition: several back upper and lower implants; denies chipped or loose teeth, caps/crowns or bridges Lungs: normal respiratory effort. Clear throughout to auscultation, no adventitious breath sounds Cardiac: regular rate and rhythm, no murmurs noted Carotid arteries: negative bruit bilat Lab Results Anesthesia Preop Results Results Anesthesia Widget: WBC 9.71 K/ul (4.8-10.8) 09/18/22 Hgb 13.2 g/dl (12.0-16.0) 09/18/22 Hct 39.3 % (34.1-44.9) 09/18/22 Plt 291 K/uL (130-400) 09/18/22 Na 136 mmol/L (136-145) 09/18/22 K 3.7 mmol/L (3.5-5.1) 09/18/22 Cl 101 mmol/L (98-107) 09/18/22 CO2 28 mmol/L (21-32) 09/18/22 BUN 15 mg/dl (6-23) 09/18/22 Creat 0.83 mg/dl (0.6-1.2) 09/18/22 Glucose Level 142 mg/dl (70-99(Fasting)) H 09/18/22 PT 10.4 Seconds (9.0-12.0) 09/18/22 PTT 30.6 Seconds (21.0-31.0) 09/18/22 INR 1.0 (0.9-1.1) 09/18/22 HA1c 5.7 % (4.5-5.6) H 09/18/22 Urine Color Yellow 09/18/22 Urine Appearance Clear (Clear) 09/18/22 Urine pH 6.5 (4.5-7.5) 09/18/22 Urine Specific [place] 1.005 (1.000-1.030) 09/18/22 Urine Protein Negative (Negative) 09/18/22 Urine Glucose (UA) Negative (Negative) 09/18/22 Urine Ketones Negative (Negative) 09/18/22 Urine Blood 1+ (Negative) H 09/18/22 Urine Nitrite Negative (Negative) 09/18/22 Urine Bilirubin Negative (Negative) 09/18/22 Urine Urobilinogen Negative (Negative) 09/18/22 Urine Leukocyte Esterase Negative (Negative) 09/18/22 Urine WBC (Auto) 0 /hpf (0-5) 09/18/22 Urine RBC (Auto) 0-4 /hpf (0-4) 09/18/22 Urine Hyaline Casts (Auto) 0 /lpf (0-5) 09/18/22 Urine Epithelial Cells (Auto) 0-5 /lpf (0-5) 09/18/22 Urine Bacteria (Auto) Negative (Negative) 09/18/22 Blood Type A Negative 09/18/22 Antibody Screen NEGATIVE 09/18/22 Testing Electrocardiogram Date: 09/18/22 NSR, rate 63 bpm Chest X-Ray Date: 09/18/22 No acute chest disease. COVID-19 Risk Screen Screening Information COVID-19 Screen Date: 09/18/22 Exposure 21 Days Family/Household +COVID Last 21 Days: No Exposure 10 Days Any COVID Exposure Last 10 Days: No Symptoms Last 10 Days Experienced COVID Sx Last 10 Days: No + COVID 0-90 Days COVID + in Last 0-90 Days: No
[~2022-10-09 06:24] MED LIST changes: -ACETAMINOPHEN 500 MG TAB PO SCH; +ALLERGY Noted to ORDERED Medication SCH; -BUPIVACAINE 0.5 % 5 MG/1 ML PF 10ML VIAL ONE; -CeleBREX 200 MG CAP PO SCH; -ROPIVACAINE 0.5% 5 MG/ML 30 ML VIAL ONE; -ROPIVACAINE 0.5% HCL/PF 150 MG, BUPIVACAINE 0.5% MPF 30 ML, EPINEPHrine 30MG/30ML (OR U... INSTIL SCH; +ROPIVACAINE 0.5% HCL/PF 150 MG, BUPIVACAINE 0.75% MPF 20 ML, EPINEPHrine 30MG/30ML (OR ... INFIL SCH
[2022-10-09] MEDS ORDERED: BUPIVACAINE 0.5 % 5 MG/1 ML PF 10ML VIAL ONE (06:35)
[2022-10-09] MEDS ORDERED: ROPIVACAINE 0.5% 5 MG/ML 30 ML VIAL ONE (06:35)
[2022-10-09] MEDS ORDERED: PROPOFOL IV EMULSION 10 MG/ML 20 ML VIAL IV ONE (06:48)
[2022-10-09] MEDS ORDERED: ONDANSETRON INJ 2 MG/ML 2 ML VIAL ONE (06:48)
[2022-10-09] MEDS ORDERED: MIDAZOLAM HCL 1 MG/ML 2ML VIAL ONE (06:48)
[2022-10-09] MEDS ORDERED: LIDOCAINE 2% MPF LOCAL 5 ML VIAL INFIL ONE (06:48)
--- NOTE | 2022-10-09 07:29 | History & Physical Bridge Note ---
Date of Service October 09, 2022 History & Physical Bridge Note I have examined the patient, reviewed the History & Physical and in the interval since the performance of the History & Physical I have noted the following changes of clinical significance: no changes noted
[2022-10-09] MEDS ORDERED: fentaNYL citrate 100 MCG/2 ML VIAL IV PRN (07:40)
[2022-10-09] MEDS ORDERED: ePHEDrine sulfate 50 MG/ML AMP IV PRN (07:40)
[2022-10-09] MEDS ORDERED: ONDANSETRON INJ 2 MG/ML 2 ML VIAL IV PRN ×2 (07:40→11:49)
[2022-10-09] MEDS ORDERED: ATROPINE SULFATE 0.1 MG/ML 10ML SYR IV PRN (07:40)
--- NOTE | 2022-10-09 10:06 | Operative Report ---
Post Operative Report Pre & Post Diagnosis Operation Date: 10/09/22 08:25 Pre-Op Diagnosis: Right knee Osteoarthritis Post-Op Diagnosis: Right knee Osteoarthritis I identified the patient and participated in the time-out.: Yes Procedure Operation Date: 10/09/22 08:25 Actual Procedures p Right Total Knee Arthroplasty with Removal Anterior Cruciate Ligament Screws(Right) utilizing [employer] journey to an en bloc total knee arthroplasty with removal of femoral screw femur size 4 right tibia 3 right poly 9 mm right patella 29 oval- Daryl Silva DO Surgeon Daryl Silva DO Loom Stop Checker WILFRIDO Mendoza Estimated Blood Loss 5 Findings Consistent with Post-Op Diagnosis Patient presents with severe end-stage DJD [id number] eburnated bone marginal osteophyte subchondral sclerosis retained ACL hardware with a large effusion Specimens Bone and cartilage femoral interference ACL screw Drains Medium bore Hemovac Anesthesia Type MAC Spinal Regional Complications none Disposition Accompanied Patient To Recovery: No Disposition: Recovery Room Indications Patient presents with severe end-stage tricompartmental DJD 6 degree flexion contracture varus alignment eburnated [id number] marginal osteophytes subchondral sclerosis with retained hardware ACL interference screws Description of Procedure After proper prepping and draping of the Right lower extremity anterior midline incision was made over the region of the extensor extensor mechanism after meticulous hemostasis was obtained and maintained in subcutaneous tissues a medial parapatellar incision was made The patella was subluxed lateralward the medial lateral gutter were cleaned from any hypertrophic synovitis and scar tissue of the distal femoral block was placed and the distal femoral osteotomy cut was made subsequently the chamfers anterior and posterior osteotomy cuts were made utilizing the 4-in-1 block the tibia was subsequently subluxed anteriorward medial and ateral meniscal remnants were excised in their entirety remnants of the anterior and posterior cruciate ligaments were excised in their entirety excellent exposure of the proximal tibia was obtained the tibial osteotomy guide was placed on the proximal tibial osteotomy cut was made once again the knee was irrigated with copious amounts of sterile saline solution the patella was subsequently everted lateralward thickened scar tissue around the patella was removed the patella was subsequently cut utilizing a freehand technique and was drilled prepared for final preparation and placement of patella socially flexion-extension gaps were checked and the equal and symmetric trials were placed to the appropriate femoral and tibial trials with poly-spacer being placed for equal flexion and extension gaps and full range of motion including extension to 0 and flexion to 140 the trial components after having been taken to recovery range of motion was subsequently removed meticulous hemostasis was obtained and maintained subsequently a knee block injection of joint cocktail including ropivacaine 0.5% 150 mg. Bupivacaine 0.5% epinephrine 1-200,030 mL's toradol 30 mg dexamethasone 4 mg ketamine 10 mg clonidine 100 micrograms normal saline solution 30 mg was infiltrated into the soft tissues of the posterior knee medial lateral gutters and periosteal synovium special attention was paid to protect neurovascular structures at all times subsequently trial components having been removed the knee was irrigated with sterile saline solution. debris was removed the proximal tibia was subsequently prepared and was made ready for the placement of the tibial component tibial component was also cemented and tamped into position the femoral component was subsequently placed and cemented in the position the patellar component was subsequently cemented in position because hemostasis once again obtained and maintained wound having been thoroughly irrigated with debridement and debridement lavage was performed as well as a medial parapatellar incision closed with #1 Vicryl in interrupted fashion subcutaneous was closed with #2 Vicryl skin was closed with skin clips. PA-C was necessary for prepping and drapping as well as wound closure of deep fascia Sub cutaneous tissue and skin and was necessary for the case. A sterile compressive dressing was placed patient was taken to recovery in stable condition of report dictated by Ricardo I attest to the content of the Intraoperative Record and any orders documented therein. Any exceptions are noted below.Due to the complex nature of the procedure, the entire surgery was performed with the operational assistance of WILFRIDO Mendoza. The contact lens assistant, under direct supervision, was involved in the actual performance of all aspects of the surgical procedure including hemostasis, tissue retraction and incision, instrument management, patient positioning, and wound closure. I attest to the content of the Intraoperative Record and any orders documented therein. Any exceptions are noted below.
--- NOTE | 2022-10-09 11:19 | XRay Report ---
XR knee RT 1 or 2V routine CLINICAL HISTORY: Surgical Post Op TECHNIQUE: 2 views of the right knee were obtained. Comparison: None available at the time of this dictation. FINDINGS: Patient is status post total knee arthroplasty with expected postsurgical changes including soft tiss ue swelling and subcutaneous emphysema. No periarticular lucency or hardware fracture is seen. IMPRESSION: Expected postoperative appearance status post placement of total knee arthroplasty. ACT 112: Negative or not required by law. Electronically signed by: José Robles M.D. 10/09/2022 11:17 AM
[2022-10-09] MEDS ORDERED: METOCLOPRAMIDE HCL INJ 5 MG/ML 2 ML VIAL IV PRN (11:49)
[2022-10-09] MEDS ORDERED: ALBUTEROL HFA 8 GM INHALER INH PRN (11:49)
[2022-10-09] MEDS ORDERED: MAGNESIUM HYDROXIDE SUSP 30 ML UDC PO PRN (11:49)
[2022-10-09] MEDS ORDERED: NALOXONE HCL 0.4 MG/1 ML VIAL/CARP IV PRN (11:49)
[2022-10-09] MEDS ORDERED: HYDROmorphone INJ 1 MG/ML SYRINGE IV PRN (11:49)
[2022-10-09] MEDS ORDERED: diphenhydrAMINE Capsule 25 MG CAP PO PRN (11:49)
[2022-10-09] MEDS ORDERED: bisacodyL 10 MG SUPP PR PRN (11:49)
--- NOTE | 2022-10-09 12:11 | Anesthesiology Progress Note ---
Date of Service October 09, 2022 Anesthesia Post Procedure Vital Signs Vital Signs: Temp Pulse Pulse Resp BP Pulse Ox O2 Del Method 10/09/22 11:45 97.3 F L 59 L 18 130/70 99 Room Air 10/09/22 11:30 97.5 F L 57 L 16 122/56 L 98 Room Air 10/09/22 11:20 58 L 12 122/61 98 Room Air 10/09/22 11:10 63 16 121/51 L 100 Room Air 10/09/22 11:00 55 L 12 104/57 L 100 Room Air 10/09/22 10:50 63 14 118/46 L 100 Oxymask 10/09/22 10:40 97.2 F L 68 16 108/43 L 100 Oxymask 10/09/22 06:52 99.0 F 65 18 175/66 H 100 Room Air O2 Flow Rate 10/09/22 11:45 10/09/22 11:30 10/09/22 11:20 10/09/22 11:10 10/09/22 11:00 10/09/22 10:50 4 10/09/22 10:40 7 10/09/22 06:52 Transfer of Care Handoff Completed per policy Notes Mental Status: alert / awake / arousable and participated in evaluation Patient Amnestic to Procedure: Yes Nausea / Vomiting: adequately controlled Pain: adequately controlled Airway Patency, RR, SpO2: stable & adequate BP & HR: stable & adequate Hydration State: stable & adequate Neuraxial Anesthesia: was administered and sensory block is resolving Anesthetic Complications: no major complications apparent and Pt Satisfied with anesthetic care
[2022-10-09] MEDS: SODIUM CHLORIDE 0.9% 1000ML 1,000 ML IV SCH (12:43)
[2022-10-09] MEDS: ACETAMINOPHEN 500 MG TAB PO SCH ×2 (14:23→22:16)
[2022-10-09] MEDS: oxyCODONE HCL IR 5 MG TAB (IMMEDIATE RELEASE) PO PRN ×2 (16:05→20:21)
[2022-10-09] MEDS: ceFAZolin 2000MG 2,000 MG/15 ML SYR IV SCH (17:28)
[2022-10-09] MEDS: DOCUSATE SODIUM 100 MG CAP PO SCH (20:19)
[2022-10-09] MEDS: GABAPENTIN 300 MG CAP PO SCH (20:19)
[2022-10-09] MEDS: CALCIUM 600MG + VIT D 400 IU TAB PO SCH (20:20)
[2022-10-09] MEDS: METAXALONE 800 MG TABLET PO SCH (20:20)
[2022-10-09] MEDS ORDERED: ATORVASTATIN 40 MG TAB PO SCH (21:00)
[2022-10-09] MEDS ORDERED: lisinopril 10 MG TAB PO SCH (21:00)
[2022-10-09] MEDS ORDERED: SENNA 8.6 MG TAB PO SCH (21:00)
[2022-10-10] MEDS: SODIUM CHLORIDE 0.9% 1000ML 1,000 ML IV SCH (00:08)
[2022-10-10] MEDS: ceFAZolin 2000MG 2,000 MG/15 ML SYR IV SCH (00:49)
[2022-10-10] MEDS: oxyCODONE HCL IR 5 MG TAB (IMMEDIATE RELEASE) PO PRN ×2 (05:05→09:10)
[2022-10-10] MEDS: ACETAMINOPHEN 500 MG TAB PO SCH (05:33)
[2022-10-10 08:00] LABS: Hematocrit (blood only) 34.1 % (37.0-47.0); Hemoglobin 11.2 g/dl (12.0-16.0); Mean Corpuscular Hemoglobin 30.4 pg (25.0-34.0); Mean Corpuscular Hgb Conc 32.8 g/dL (32.0-36.0); Mean Corpuscular Volume 92.7 fL (80.0-100.0); Mean Platelet Volume 10.5 fL (9.4-12.4); Platelet Count 242 K/uL (130-400); RDW Coefficient of Variation 13.2 % (11.5-14.5); RDW Standard Deviation 44.9 fL (36.4-46.3); Red Blood Count 3.68 M/uL (4.20-5.40); White Blood Count 15.85 K/ul (4.8-10.8)
--- NOTE | 2022-10-10 08:03 | Orthopedic Progress Note ---
Date of Service October 10, 2022 Assessment & Plan (1) History of total right knee replacement: Plan: POD #1 s/p Right TKA pt/ot dvt proph with SHELBIE/SCD/Plavix plan for d/c home with HHPT Admission and Anticipated Discharge Date Admission Date: October 09, 2022 Subjective POD #1 s/p Right TKA Review of Systems Constitutional: no fever, no chills and no sweats Respiratory: no cough and no dyspnea Cardiovascular: no chest pain and no dyspnea Gastrointestinal: no abdominal pain, no nausea and no vomiting Physical Exam Physical Exam: Vital Signs Temp 36.7 C 10/10/22 07:38 Pulse 70 10/10/22 07:38 Resp 18 10/10/22 07:38 BP 117/56 L 10/10/22 07:38 Pulse Ox 97 10/10/22 07:38 O2 Del Method Room Air 10/10/22 07:38 O2 Flow Rate 4 10/09/22 10:50 Intake & Output 10/09/22 10/10/22 10/10/22 18:59 06:59 18:59 Intake Total 500 / 1500 1000 / 1500 Output Total 55 / 55 Balance 445 / 1445 1000 / 1445 Weight 59.5 kg Intake: IV 200 / 1200 1000 / 1200 Lactated Ringe r's 1,000 ml @ 15 0 / 0 mls/hr IV .Q24 H STELLA Rx#: [id number] Sodium Chlorid e 0.9% 1000ML 1, 1000 / 1000 000 ml @ 100 m ls/hr IV .Q10H STELLA Rx#:[id number] Tranexamic Aci d / 0.7% NaCl 1, 200 / 200 000 mg In 100 ml @ 600 mls/hr IV TODAY@0600 STELLA Rx#:[id number] IV Perioperative 300 / 300 Output: Estimated Blood Loss 5 / 5 Drain Output 50 / 50 Right Knee Hem ovac 50 / 50 Other: # Unmeasured Voi ds 1 2 Weight Measureme nt Method Standing Scale Musculoskeletal: Right Leg: NVDI, calf SNT, negative philly sign. DP palpable, able to wiggle toes/ankle movement without difficulty. dressing clean dry and intact. Results & Data ([facility]) Vital Signs (Past 12 Hours) Vital Signs Temp Pulse Resp BP Pulse Ox O2 Del Method 10/10/22 07:38 36.7 C 70 18 117/56 L 97 Room Air 10/10/22 02:56 36.6 C 56 L 16 107/66 96 Room Air 10/09/22 22:36 36.8 C 61 18 103/56 L 96 Room Air Laboratory Results Laboratory Results WBC 15.85 K/ul (4.8-10.8) H 10/10/22 06:56 RBC 3.68 M/uL (4.20-5.40) L 10/10/22 06:56 Hgb 11.2 g/dl (12.0-16.0) L 10/10/22 06:56 Hct 34.1 % (37.0-47.0) L 10/10/22 06:56 MCV 92.7 fL (80.0-100.0) 10/10/22 06:56 MCH 30.4 pg (25.0-34.0) 10/10/22 06:56 MCHC 32.8 g/dL (32.0-36.0) 10/10/22 06:56 RDW Std Deviation 44.9 fL (36.4-46.3) 10/10/22 06:56 RDW Coeff of Ruth Ann 13.2 % (11.5-14.5) 10/10/22 06:56 Plt Count 242 K/uL (130-400) 10/10/22 06:56 MPV 10.5 fL (9.4-12.4) 10/10/22 06:56 SARS-CoV-2, RNA, NAAT NEGATIVE (NEGATIVE) 10/09/22 06:35 Impressions Knee X-Ray 10/09/22 10:46 XR knee RT 1 or 2V routine CLINICAL HISTORY: Surgical Post Op TECHNIQUE: 2 views of the right knee were obtained. Comparison: None available at the time of this dictation. FINDINGS: Patient is status post total knee arthroplasty with expected postsurgical changes including soft tissue swelling and subcutaneous emphysema. No periarticular lucency or hardware fracture is seen. IMPRESSION: Expected postoperative appearance status post placement of total knee arthroplasty. ACT 112: Negative or not required by law. Electronically signed by: José Robles M.D. 10/09/2022 11:17 AM
--- NOTE | 2022-10-10 08:35 | Discharge Summary ---
Date of Service date of discharge: October 10, 2022 date of admission: October 09, 2022 Admission HPI Per Admitting Provider Gini is a pleasant 72-year-old female who presents for preop evaluation prior to right total knee replacement. She states that she has been having pain in h is knee for many years now which is gradually worsened and is now affecting her daily activities including walking standing using stairs. She is prior history of ACL reconstruction approximately 25 years ago. She is tried and failed previous corticosteroid injection as well as viscosupplementation. She rates her current pain as a 7 out of 10 is also tried oral anti-inflammatories and Tylenol without relief Principal Diagnosis right knee arthritis Discharge Exam Vital Signs Temp 36.7 C 10/10/22 07:38 Pulse 70 10/10/22 07:38 Resp 18 10/10/22 07:38 BP 117/56 L 10/10/22 07:38 Pulse Ox 97 10/10/22 07:38 O2 Del Method Room Air 10/10/22 07:38 O2 Flow Rate 4 10/09/22 10:50 Intake & Output 10/09/22 10/10/22 10/10/22 18:59 06:59 18:59 Intake Total 500 / 1500 1000 / 1500 Output Total 55 / 55 Balance 445 / 1445 1000 / 1445 Weight 59.5 kg Intake: IV 200 / 1200 1000 / 1200 Lactated Ringer's 1,000 ml @ 15 0 / 0 mls/hr IV .Q24H STELLA Rx#: [id number] Sodium Chloride 0.9% 1000ML 1, 1000 / 1000 000 ml @ 100 mls/hr IV .Q10H STELLA Rx#:[id number] Tranexamic Acid / 0.7% NaCl 1, 200 / 200 000 mg In 100 ml @ 600 mls/hr IV TODAY@0600 STELLA Rx#:[id number] IV Perioperative 300 / 300 Output: Estimated Blood Loss 5 / 5 Drain Output 50 / 50 Right Knee Hemovac 50 / 50 Other: # Unmeasured Voids 1 2 Weight Measurement Method Standing Scale Musculoskeletal Right Knee: NVDI, calf SNT, negative philly sign. DP palpable, able to wiggle toes/ankle movement without difficulty. dressing clean dry and intact. expected post-operative bruising noted. Discharge Data Allergies Allergy/AdvReac Type Severity Reaction Status Date / Time hydrochlorothiazide Allergy Severe Nausea Verified 10/09/22 06:59 aspirin Allergy Unknown SOB, Verified 10/09/22 06:58 "ASTHMA ATTACK"-WITH MOTRIN, ASA PRODUCTS ibuprofen [From Motrin] Allergy Unknown Verified 10/09/22 06:58 Procedures Performed Operation Date: 10/09/22 08:25 Actual Procedures p Right Total Knee Arthroplasty with Removal Anterior Cruciate Ligament Screws(Right) - Daryl Gupta DO Ordered Studies 10/09/22 05:00 US - OR guided needle placemen Routine Hospital Course (1) History of total right knee replacement: POD #1 s/p Right TKA pt/ot dvt proph with SHELBIE/SCD/Plavix plan for d/c home with HHPT Total Time Total Time Spent Total Time Spent (In Minutes): 20 Discharge Plan Discharge Items Patient Disposition: Home - Home Health Services Reason For Visit: POST OP TKA Discharge Diagnosis: RIGHT TOTAL KNEE REPLACEMENT Activity: Per Instructions section Weightbearing Comment: WBAT WITH WALKER Non-emergency contact: Surgeon Call non-emergency contact if: you have any medication questions, your temperature is above 101, your wound has increased redness, your wound has increased drainage and your wound pain has increased Follow-up/Referrals: Jessica Hernandez D.O. [Primary Care Provider] - Diet: Regular Addtl Attending Provider Instructions: ACTIVITY RECOMMENDATIONS: SELF CARE INSTRUCTIONS AFTER TOTAL KNEE REPLACEMENT A. You may need to continue a physical therapy program after discharge from the hospital. There are several options available to you. Your doctor will assist you in selecting the best one for you. 1. An out-patient facility 2 to 3 times a week for therapy or home therapy. 2. Continue working on all exercises taught to you in the hospital. Your goals should be to increase bending of your knee to 90 degrees and beyond and to fully straighten your knee. B. You may progress at your own pace from walking with a walker or crutches to a cane; then to no assistive devices. C. Make walking a part of your daily routine. Be up as much as comfortable with rest periods throughout the day. Rest with leg elevation is very important. Use the ice wrap frequently for the first 3-4 weeks. D. There are no restrictions on activities. You may ride in a car, shop, participate in patient service representative and all social activities. E. Wear the long elastic stockings (SHELBIE hose) 20 hours a day for 2 weeks after surgery. They can be removed several times a day for laundering and for a bath. F. You may shower, no tub baths until cleared by your doctor. SPECIAL CARE INSTRUCTIONS: VERY IMPORTANT TO READ AND REVIEW A. There are a few signs you need to watch for after you are home. Call [facility] if you notice any of the followin. Increased severe knee pain. Some pain is expected especially when you exercise. 2. Increased swelling in your leg or knee; pain or swelling of the calf muscle in either lower leg. 3. Any fluid drainage from the incision. 4. Shortness of breath or chest pain. B. Please call [facility] at if you have any concerns or questions about your operation or recovery. The doctor or his nurse will return your call promptly. C. You must take antibiotics before dental work, bladder, bowel or other surgery. Your doctor will provide you with a permanent care to carry describing this precaution. IMPORTANT: * REMEMBER TO TAKE ASPIRIN, 81 MG, TWICE DAILY FOR 4 WEEKS UNLESS OTHERWISE DIRECTED. THIS IS YOUR BLOOD THINNER. * HIGH RISK PATIENTS MAY BE PRESCRIBED A STRONGER BLOOD THINNER. THIS WILL BE PROVIDED AT DISCHARGE. * CALL IF INCREASED PAIN, REDNESS, DRAINAGE OR FEVER GREATER THAT 101. * WEAR SHELBIE HOSE 20 HOURS PER DAY FOR 2 WEEKS. DRESSING INSTRUCTIONS * NORMA Dressing- This is a large suction dressing covering your incision. This will help pull any excess drainage from the wound and allow your incision to heal properly. You may shower with this if you can keep the unit outside of the shower. If any bleeding or leakage is noted please call your doctor's office. This will remain on your incision for 7 days and then should be removed. This can be done yourself or by the home nursing staff if applicable. The entire unit is disposable once removed. Once removed, keep incision clean and dry. If redness or drainage is noted, please call your surgeon. ONCE NORMA IS REMOVED, FOLLOW THESE INSTRUCTIONS: DERMABOND Prineo- This is a mesh tape dressing that is covered with glue. It should remain in place until the incision is properly healed, usually 10-14 days. This dressing is designed to naturally slough off. You may trim the excess mesh tape as it peels off. Incision may be briefly wet in a shower. Dry immediately by blotting with a clean, dry towel. Do not bath or swim until instructed by your doctor. Do not scratch, rub, or pick at the dressing. Do not apply any topical ointments or lotions until dressing is completely removed and/or instructed by your doctor. There may be a small piece of suture material at one end of your incision. Do not pull or trim this. If it is bothersome or catching on clothing, you may cover it with a band-aid. IF INCISION IS LEAKING THROUGH DRESSING, CALL THE OFFICE . FOLLOW UP VISIT: If appointment is not already scheduled: Please call [facility] to make a follow-up appointment for 2 weeks after your surgery at . Pending Studies at Discharge: No Stand-Alone Forms: My [facility] Medications and DC Order Prescriptions: New acetaminophen [Tylenol Extra Strength] 500 mg Tablet 1,000 mg PO Q8 21 Days Qty: 126 0RF oxycodone 5 mg Tablet 5 - 10 mg PO Q6H PRN (Reason: pain) Qty: 30 0RF Rx Instructions: ongoing therapy, supervising dr sanjay gupta. max 6 tabs in 24 hours clindamycin HCl 300 mg capsule 300 mg PO TID 7 Days Qty: 21 0RF Continued atorvastatin 20 mg Tablet 40 mg PO HS clopidogrel 75 mg Tablet 75 mg PO QAM lisinopril 10 mg Tablet 20 mg PO QAM lansoprazole 30 mg Tablet,Disintegrat, Delay Rel 30 mg PO QAM Calcium 600 + D(3) 600 mg calcium- 200 unit Capsule 1 cap PO BID cholecalciferol (vitamin D3) [Vitamin D3] 50 mcg (2,000 unit) Capsule 50 mcg PO QAM albuterol sulfate 90 mcg/actuation Hfa Aerosol Inhaler 2 puff INHALATION Q6H PRN (Reason: Wheezing) alendronate 70 mg Tablet 70 mg PO WK Rx Instructions: lisinopril 10 mg Tablet 10 mg PO QPM gabapentin 300 mg Capsule 300 mg PO BID metaxalone [Metaxall] 800 mg Tablet 800 mg PO BID psyllium seed (sugar) Powder 1 tsp PO QAM Discontinued coenzyme Q10 [CoQ-10] 100 mg Capsule 200 mg PO QPM [place] 3 Capsule 500 mg PO QPM turmeric 400 mg Capsule 400 mg PO QPM Admission Data Admit Date/Time: 10/09/22 10:46 Attending Provider: Daryl Gupta Admit Provider: Daryl Gupta Primary Care Provider: Jessica Hernandez
[2022-10-10] MEDS ORDERED: PSYLLIUM or GUAR GUM FIBER POWDER PACKET PO SCH (09:00)
[2022-10-10] MEDS ORDERED: MULTIVITAMIN TAB PO SCH (09:00)
[2022-10-10] MEDS ORDERED: lisinopril 20 MG TAB PO SCH (09:00)
[2022-10-10] MEDS ORDERED: CHOLECALCIFEROL 1,000 UNITS 25 MCG TAB PO SCH (09:00)
[2022-10-10] MEDS ORDERED: CLOPIDOGREL BISULFATE 75 MG TAB PO SCH (09:00)
[2022-10-10] MEDS ORDERED: PANTOprazole 40 MG TAB PO SCH (09:00)
[2022-10-10] MEDS: CALCIUM 600MG + VIT D 400 IU TAB PO SCH (09:15)
[2022-10-10] MEDS: DOCUSATE SODIUM 100 MG CAP PO SCH (09:15)
[2022-10-10] MEDS: METAXALONE 800 MG TABLET PO SCH (09:15)
[2022-10-10] MEDS: GABAPENTIN 300 MG CAP PO SCH (09:15)
[2022-10-10 10:07] LABS: Calcium 9.1 mg/dl (8.5-10.1); Potassium 3.9 mmol/L (3.5-5.1)
[2022-10-10 10:12] LABS: BUN Creatinine Ratio 18.9 (10-20); Creatinine Clr Calc Pharmacy 44.7 ml/min; Est GFR (Non-African American) 63.9 ml/min
[2022-10-11] MEDS ORDERED: ALENDRONATE SODIUM 70 MG TAB PO SCH (07:00)
== END 2022-10-10 11:26 | disposition home health service (06) ==
LOC: ASU 06:24 → 3N 06:24